=== PATIENT | female | born 1975 | race Caucasian/White ===

== ENCOUNTER 2017-02-16 11:43 | Emergency (ER) | payer MEDICAID ==
[~2017-02-16] VITALS: Ht 170.2 cm; Wt 55.5 kg
[~2017-02-16 11:43] MED LIST: DICL75 PO; ORPH100T PO; Z.0.NO CURRENT MEDS
[2017-02-16 11:45] VITALS: BP 139/92; PULSE 87; RESP 18; TEMP 98.2; O2SAT 100
[2017-02-16 13:50] VITALS: BP 158/90; PULSE 87; RESP 20; TEMP 98.4; O2SAT 100
[2017-02-16] MEDS ORDERED: HYDR-3534 PO (13:50)
[2017-02-16] MEDS ORDERED: DIAZ10 PO (13:50)
[2017-02-16] MEDS ORDERED: SODIUM CHLOR 0.9% 1000 ML INJ 1,000 ML IV SCH (13:56)
--- NOTE | 2017-02-16 14:04 | PD ---
HPI Chief Complaint: General Weakness Time Seen by Provider: 13:50 Travel History International Travel<30 days: No Contact w/Intl Traveler<30days: No Traveled to known affect area: No History of Present Illness HPI 31-year-old female presents for evaluation. For 3 weeks she has had cough, congestion, 20 pound weight loss. The cough is worse tonight. She's been using [id number] cough and cold medications with no relief. She is concerned about the weight lossshe reports she is usually 140 pound weight. She endorses a fever yesterday of 101. She also endorses some epigastric abdominal pain for the past month. She denies any significant past medical history and she does not currently have a primary care physician. Denies recent travel. Denies history of HIV, drug abuse. No other complaints. PFSH Past Medical History Medical History: Denies Significant Hx ?: Not LMP: 02-07-17 Past Surgical History Gynecologic Surgery: Yes (csection x 2) Social History Alcohol Use: No Tobacco Use: Yes Allergies-Medications (Allergen,Severity, Reaction): Coded Allergies: Sulfa (Verified Allergy, Mild, "FEELS LIKE NEEDLE STICKING HER", 02/16/17) Reported Meds & Prescriptions Reported Meds & Active Scripts Active Reported Valium (Diazepam) 10 Mg Tab 10 Mg PO BID PRN Lortab (Hydrocodone-Acetaminophen) 7.5-325 Mg Tab 1 Tab PO Q4H PRN Review of Systems Except as stated in HPI: all other systems reviewed are Neg Physical Exam Narrative GENERAL: Well-developed well-nourished female in no acute distress SKIN: Warm and dry. HEAD: Atraumatic. Normocephalic. EYES: Pupils equal and round. No scleral icterus. No injection or drainage. ENT: No nasal bleeding or discharge. Mucous membranes pink and moist. NECK: Trachea midline. No JVD. CARDIOVASCULAR: Regular rate and rhythm. No murmur appreciated. RESPIRATORY: No accessory muscle use. Clear to auscultation. Breath sounds equal bilaterally. GASTROINTESTINAL: Abdomen soft, non-tender, nondistended. Hepatic and splenic margins not palpable. MUSCULOSKELETAL: No obvious deformities. No clubbing. No cyanosis. No edema. NEUROLOGICAL: Awake and alert. No obvious cranial nerve deficits. Motor grossly within normal limits. Normal speech. PSYCHIATRIC: Appropriate mood and affect; insight and judgment normal. Data Data Last Documented VS Vital Signs Date Time Temp Pulse Resp B/P Pulse Ox O2 Delivery O2 Flow Rate FiO2 02/16/17 13:50 98.4 87 20 158/90 100 Orders Complete Blood Count With Diff (02/16/17 13:56) Comprehensive Metabolic Panel (02/16/17 13:56) Lipase (02/16/17 13:56) Urinalysis - C+S If Indicated (02/16/17 13:56) Ct Abd/Pel W Iv Contrast(Rout) (02/16/17 13:56) Electrocardiogram (02/16/17 13:56) Chest, Single Ap (02/16/17 13:56) Ed Urine Pregnancytest Poc (02/16/17 13:56) Influenzae A/B Antigen (02/16/17 13:56) Sodium Chlor 0.9% 1000 Ml Inj (Ns 1000 M (02/16/17 13:56) Thyroid Stimulating Hormone (02/16/17 13:56) Iohexol 350 Inj (Omnipaque 350 Inj) (02/16/17 15:49) Labs Laboratory Tests Test 02/16/17 02/16/17 14:10 14:25 Urine Color YELLOW Urine Turbidity HAZY Urine pH 5.5 Urine Specific [place]gil 1.024 Urine Protein TRACE mg/dL Urine Glucose (UA) NEG mg/dL Urine Ketones TRACE mg/dL Urine Occult Blood NEG Urine Nitrite NEG Urine Bilirubin NEG Urine Urobilinogen 2.0 MG/DL Urine Leukocyte Esterase NEG Urine RBC 3 /hpf Urine WBC 1 /hpf Urine Squamous Epithelial 1 /hpf Cells Urine Hyaline Casts 1 /lpf Urine Mucus FEW /lpf Microscopic Urinalysis Comment CULT NOT INDICATED White Blood Count 10.4 TH/MM3 Red Blood Count 4.72 MIL/MM3 Hemoglobin 15.5 GM/DL Hematocrit 44.1 % Mean Corpuscular Volume 93.5 FL Mean Corpuscular Hemoglobin 32.8 PG Mean Corpuscular Hemoglobin 35.1 % Concent Red Cell Distribution Width 13.4 % Platelet Count 388 TH/MM3 Mean Platelet Volume 7.3 FL Neutrophils (%) (Auto) 61.2 % Lymphocytes (%) (Auto) 29.9 % Monocytes (%) (Auto) 7.0 % Eosinophils (%) (Auto) 1.1 % Basophils (%) (Auto) 0.8 % Neutrophils # (Auto) 6.4 TH/MM3 Lymphocytes # (Auto) 3.1 TH/MM3 Monocytes # (Auto) 0.7 TH/MM3 Eosinophils # (Auto) 0.1 TH/MM3 Basophils # (Auto) 0.1 TH/MM3 CBC Comment DIFF FINAL Differential Comment Sodium Level 141 MEQ/L Potassium Level 3.6 MEQ/L Chloride Level 105 MEQ/L Carbon Dioxide Level 26.7 MEQ/L Anion Gap 9 MEQ/L Blood Urea Nitrogen 8 MG/DL Creatinine 0.77 MG/DL Estimat Glomerular Filtration 82 ML/MIN Rate Random Glucose 74 MG/DL Calcium Level 9.1 MG/DL Total Bilirubin 0.5 MG/DL Aspartate Amino Transf 13 U/L (AST/SGOT) Alanine Aminotransferase 16 U/L (ALT/SGPT) Alkaline Phosphatase 67 U/L Total Protein 7.8 GM/DL Albumin 4.3 GM/DL Lipase 96 U/L Thyroid Stimulating Hormone 1.560 uIU/ML 3rd Gen [facility] Medical Decision Making Medical Screen Exam Complete: Yes Emergency Medical Condition: Yes Medical Record Reviewed: Yes Differential Diagnosis Bronchitis, pneumonia, influenza, pancreatitis, dehydration, electrolyte abnormality, malignancy Narrative Course 41-year-old female with cough and cold symptoms, and unintentional 20 pound weight loss over the past month. Physical examination is unremarkable. Lab work, imaging studies including chest x-ray, CT of the abdomen and pelvis have been ordered and they're all essentially unremarkable. Suspect viral upper respiratory infection. Recommended outpatient follow-up with primary care physician. Diagnosis Primary Impression: Upper respiratory infection Qualified Code: J06.9 - Upper respiratory tract infection, unspecified type Additional Instructions: Stay well hydrated well-nourished. Follow-up with primary care physician. Return for any emergent medical conditions. Med/Other Pt SpecificInfo: No Change to Meds Disposition: 01 DISCHARGE HOME Condition: Stable Paulie Machado Feb 16, 2017 14:04
--- NOTE | 2017-02-16 14:42 | PD ---
Data Data Last Documented VS Vital Signs Date Time Temp Pulse Resp B/P Pulse Ox O2 Delivery O2 Flow Rate FiO2 02/16/17 13:50 98.4 87 20 158/90 100 Orders Complete Blood Count With Diff (02/16/17 13:56) Comprehensive Metabolic Panel (02/16/17 13:56) Lipase (02/16/17 13:56) Urinalysis - C+S If Indicated (02/16/17 13:56) Ct Abd/Pel W Iv Contrast(Rout) (02/16/17 13:56) Electrocardiogram (02/16/17 13:56) Chest, Single Ap (02/16/17 13:56) Ed Urine Pregnancytest Poc (02/16/17 13:56) Influenzae A/B Antigen (02/16/17 13:56) Sodium Chlor 0.9% 1000 Ml Inj (Ns 1000 M (02/16/17 13:56) Thyroid Stimulating Hormone (02/16/17 13:56) MDM Supervised Visit with JOHN: Yes Narrative Course I, Dr. Bone, have reviewed the advance practice practioner's documentation and am in agreement, met with the patient face to face, made the diagnosis, and the medical decision making was done by me. *My assessment and Findings: 31-year-old female here with complaint of 3-4 weeks of generalized weakness, malaise and unintentional weight loss. States she's lost approximately 20 pounds over the course of the last month unintentionally. She notes a minimal cough, particularly at night. She had a fever yesterday with mild epigastric abdominal tenderness to palpation but denies any history of hepatobiliary or, pancreatic pathology. She notes no increase in her abdominal pain when she eats, and in fact until we pressed on her abdomen she really didn't describe any abdominal pain. Differential includes gastritis, pancreatitis, hepatobiliary pathology, symptomatic anemia, electrolyte abnormality, thyroid abnormality, pneumonia. We'll check EKG, chest x-ray, labs/urine and CT abdomen and pelvis. If negative, I will refer comfortable with discharged home with outpatient PCP follow-up. Antonella Bone MD Feb 16, 2017 14:42
[2017-02-16 14:55] LABS: AUTOMATED NEUTROPHIL # 6.4 TH/MM3 (1.8-7.7); BASOPHIL # 0.1 TH/MM3 (0-0.2); BASOPHIL % 0.8 % (0.0-2.0); EOSINOPHIL # 0.1 TH/MM3 (0-0.4); EOSINOPHIL % 1.1 % (0.0-4.0); HEMATOCRIT 44.1 % (35.0-46.0); HEMO FLAGS DIFF FINAL; LYMPH % 29.9 % (9.0-44.0); LYMPHOCYTE # 3.1 TH/MM3 (1.0-4.8); MEAN CELL VOLUME 93.5 FL (80.0-100.0); MEAN CORPUSCULAR HEMOGLOBIN 32.8 PG (27.0-34.0); MEAN CORPUSCULAR HGB CONC 35.1 % (32.0-36.0); NEUT % 61.2 % (16.0-70.0); PLATELET COUNT 388 TH/MM3 (150-450); RED BLOOD COUNT 4.72 MIL/MM3 (4.00-5.30); RED CELL DISTRIBUTION WIDTH 13.4 % (11.6-17.2); WHITE BLOOD COUNT 10.4 TH/MM3 (4.0-11.0)
[2017-02-16 15:06] LABS: BLOOD, URINE NEG (NEG); COMMENT (UR) CULT NOT INDICATED; CULTURE IF INDICATED CULT NOT INDICATED; GLUCOSE,URINE NEG (NEG); HYALINE CAST, URINE 1 /lpf (RARE); KETONE, URINE TRACE mg/dL (NEG); MUCUS URINE FEW /lpf (OCC); NITRITE,URINE NEG (NEG); PH, URINE 5.5 (5.0-8.5); SQUAMOUS EPITHELIAL CELL URINE 1 /hpf (0-5); URINE COLOR YELLOW (YELLW/STRAW)
[2017-02-16 15:15] LABS: ALT (GPT) 16 U/L (10-53); ANION GAP 9 MEQ/L (5-15); AST (GOT) 13 U/L (15-37); BICARBONATE 26.7 MEQ/L (21.0-32.0); BLOOD UREA NITROGEN 8 MG/DL (7-18); CHLORIDE 105 MEQ/L (98-107); GLOMERULAR FILTRATION RATE 82 ML/MIN (>89); POTASSIUM 3.6 MEQ/L (3.5-5.1); SODIUM (NA) 141 MEQ/L (136-145)
--- NOTE | 2017-02-16 15:16 | RADRPT ---
EXAM DATE/TIME: 02/16/2017 14:16 [facility] COMPARISON: No previous studies available for comparison. INDICATIONS : Patient has felt weak and had rapid weight loss for three and a half weeks. MEDICAL HISTORY : None. SURGICAL HISTORY : None. ENCOUNTER: Initial ACUITY: 3 weeks PAIN SCORE: 8/10 LOCATION: Bilateral Abdomen. FINDINGS: 2 AP views of the chest. The lungs are clear. Cardiomediastinal silhouette within normal limits. No e vidence of pleural effusion or pneumothorax. CONCLUSION: No acute cardiopulmonary disease identified. Tho Gonzalez MD on February 16, 2017 at 15:13 Board Certified Radiologist. This report was verified electronically.
[2017-02-16 15:25] LABS: ALKALINE PHOSPHATASE 67 U/L (45-117); TOTAL BILIRUBIN ADULT 0.5 MG/DL (0.2-1.0)
[2017-02-16] MEDS ORDERED: IOHEXOL 350 MG/ML 10 ML VIAL (for RAD DIAG) IV ONE (15:49)
--- NOTE | 2017-02-16 16:29 | RADRPT ---
EXAM DATE/TIME: 02/16/2017 15:37 [facility] COMPARISON: No previous studies available for comparison. INDICATIONS : Weight loss and fatigue. IV CONTRAST: 100 cc Omnipaque 350 (iohexol) IV ORAL CONTRAST: No oral contrast ingested. RADIATION DOSE: 9.96 CTDIvol (mGy) MEDICAL HISTORY : None SURGICAL HISTORY : section. ENCOUNTER: Initial ACUITY: 1 month PAIN SCALE: 2/10 LOCATION: Bilateral lower quadrant TECHNIQUE: Volumetric scanning of the abdomen and pelvis was performed. Using automated exposure control and ad justment of the mA and/or kV according to patient size, radiation dose was kept as low as reasonably achievable to obtain optimal diagnostic quality images. FINDINGS: LOWER LUNGS: The visualized lower lungs are clear. LIVER: Homogeneous density without lesion. There is no dilation of the biliary tree. No calcified gallston es. SPLEEN: Normal size without lesion. PANCREAS: Within normal limits. KIDNEYS: Normal in size and shape. There is no mass, stone or hydronephrosis. ADRENAL GLANDS: Within normal limits. VASCULAR: There is no aortic aneurysm. BOWEL/MESENTERY: The stomach, small bowel, and colon demonstrate no acute abnormality. There is no free intraperitone al air or fluid. ABDOMINAL WALL: Within normal limits. RETROPERITONEUM: There is no lymphadenopathy. BLADDER: No wall thickening or mass. REPRODUCTIVE: Within normal limits. An IUD is observed. INGUINAL: There is no lymphadenopathy or hernia. MUSCULOSKELETAL: Within normal limits for patient age. CONCLUSION: 1. Normal exam. 2. IUD. Reid Pires Jr., MD on February 16, 2017 at 16:14 Board Certified Radiologist. This report was verified electronically.
--- NOTE | 2017-02-16 22:30 | EKG ---
Date Performed: 02/16/2017 Time Performed: 14:16:00 PTAGE: 41 years EKG: SINUS BRADYCARDIA POSSIBLE RIGHT VENTRICULAR CONDUCTION DELAY BORDERLINE ECG NO PREVIOUS TRACING DOCTOR: Violeta Zamora Interpretating Date/Time 02/16/2017 22:29:46
== END 2017-02-16 17:12 | disposition home or self-care (01) ==
LOC: NEPD 11:43
DX: J06.9 Acute upper respiratory infection, unspecified (principal); R50.9 Fever, unspecified; R94.31 Abnormal electrocardiogram [ECG] [EKG]; R10.13 Epigastric pain; R63.4 Abnormal weight loss; Z72.0 Tobacco use
CPT/HCPCS: 71010; 74177; 80053; 81001; 83690; 84443; 84703; 85025; 87804; 93005; 96360; 96361; 99284; J7030; Q9967